=== PATIENT | male | born 1955 | race Caucasian/White ===

== ENCOUNTER 2022-09-16 11:26 | Outpatient (CLI) | payer MEDICARE, OTHER | END 2022-09-16 11:27 | disposition home or self-care (01) | LOC: CSHRAD 11:26 | PROVIDERS: ATTEND Family Medicine Sports Medicine | DX: R20.0 Anesthesia of skin (principal); M16.9 Osteoarthritis of hip, unspecified; M47.816 Spondylosis without myelopathy or radiculopathy, lumbar region | CPT/HCPCS: 72110 ==